=== PATIENT | male | born 1985 | race Caucasian/White ===

== ENCOUNTER 2016-12-04 23:41 | Emergency (ER) | payer OTHER ==
[~2016-12-04] VITALS: Ht 170.2 cm; Wt 88.5 kg
[2016-12-04 23:43] VITALS: Ht 170.2 cm; Wt 88.5 kg
[2016-12-05] MEDS ORDERED: LIDOCAINE 1% (MDV) 20 ML INJ SC ONE (00:30)
[2016-12-05] MEDS ORDERED: CEPH-443 PO (01:12)
[2016-12-05] MEDS ORDERED: DIPHTH/TET/ACEL PERTUSS (ADULT) 0.5 ML VIAL IM* ONE (01:30)
[2016-12-05 02:13] VITALS: BP 133/60; PULSE 89; RESP 20; TEMP 98.3
--- NOTE | 2016-12-05 02:17 | ERD ---
ER Documentation Chief Complaint Date/Time DATE: 12/05/16 TIME: 02:05 Chief Complaint left thumb laceration work related HPI This is a 31-year-old male presenting to the emergency department for left thumb laceration. Patient states he was at work when he cut his thumb using a knife. No numbness or tingling. No loss of sensation. Patient applied direct pressure to injury and bleeding stopped. Tdap status unknown according to patient. ROS All systems reviewed and are negative except as per history of present illness. Medications Home Meds Active Scripts Cephalexin* (Keflex*) 500 Mg Capsule, 500 MG PO QID for 5 Days, CAP Prov:MICHELLE JOSEPH Barbie PACKING AND SHIPPING CLERK 12/05/16 Allergies Allergies: Coded Allergies: No Known Allergy (Unverified , 12/04/16) PMhx/Soc Medical and Surgical Hx: pt denies Medical Hx, pt denies Surgical Hx History of Surgery: No Anesthesia Reaction: No Hx Neurological Disorder: No Hx Respiratory Disorders: No Hx Cardiac Disorders: No Hx Psychiatric Problems: No Hx Miscellaneous Medical Probl: No Hx Alcohol Use: No Hx Substance Use: No Hx Tobacco Use: No Smoking Status: Never smoker Physical Exam Vitals Vital Signs Date Time Temp Pulse Resp B/P Pulse Ox O2 Delivery O2 Flow Rate FiO2 12/04/16 23:43 97.8 88 20 136/89 99 Physical Exam Const: No acute distress, alert Head: Atraumatic Eyes: Normal Conjunctiva ENT: Normal External Ears, Nose and Mouth. Neck: Full range of motion..~ No meningismus. Resp: Clear to auscultation bilaterally Cardio: Regular rate and rhythm, no murmurs Abd: Soft, non tender, non distended. Normal bowel sounds Skin: avulsion to medial aspect of left thumb fingertip with removal of about 1cm of distal left fingernail. no surrounding swelling or erythema. no drainage or warmth. Back: No midline or flank tenderness Ext: No cyanosis, or edema Neur: Awake and alert Psych: Normal Mood and Affect Results 24 hrs Current Medications Medications (Trade) Dose Ordered Sig/Laurie Route PRN Reason Start Time Stop Time Status Last Admin Dose Admin Lidocaine (Xylocaine 1% (Mdv) 20 ml) 20 ml ONCE ONCE SC 12/05/16 00:30 12/05/16 00:31 DC Diphtheria/ Tetanus/Acell Pertussis (Adacel) 0.5 ml ONCE ONCE IM* 12/05/16 01:30 12/05/16 01:31 DC Procedures/MDM MDM: 31-year-old male presents emergency department for laceration that occurred today. Patient was using a knife and had an avulsion type laceration to left thumb. Remains neurovascularly intact. Cannot approximate the skin and no indication for suturing. Patient's bleeding was easily controlled in the department and there is no indication of anemia. No evidence of compartment syndrome, neurologic injury, vascular injury, open joint, tendon laceration, or foreign body. Patient is appropriate for outpatient follow up. 48 hour wound check. Scar minimization instructions given. Patient will be given prescription for Keflex. Return to ED for any high fever, chest pain, difficulty breathing, shortness breath, wheezing, vomiting, diarrhea, abdominal pain or any new or worsening symptoms. Patient verbalizes understanding. All questions answered at discharge. Departure Diagnosis: Primary Impression: Laceration Condition: Stable Patient Instructions: Laceration, Hand Referrals: [facility] YOU HAVE RECEIVED A MEDICAL SCREENING EXAM AND THE RESULTS INDICATE THAT YOU DO NOT HAVE A CONDITION THAT REQUIRES URGENT TREATMENT IN THE EMERGENCY DEPARTMENT. FURTHER EVALUATION AND TREATMENT OF YOUR CONDITION CAN WAIT UNTIL YOU ARE SEEN IN YOUR DOCTORS OFFICE WITHIN THE NEXT 1-2 DAYS. IT IS YOUR RESPONSIBILITY TO MAKE AN APPOINTMENT FOR FOLOW-UP CARE. IF YOU HAVE A PRIMARY DOCTOR --you should call your primary doctor and schedule an appointment IF YOU DO NOT HAVE A PRIMARY DOCTOR YOU CAN CALL OUR PHYSICIAN REFERRAL HOTLINE AT IF YOU CAN NOT AFFORD TO SEE A PHYSICIAN YOU CAN CHOSE FROM THE FOLLOWING [facility] CLINICS [facility] [address] [facility] [address] [facility] [facility] [address] [facility] [address] [facility] [address] [facility]. [facility]. [address] [facility]. [facility] YOU HAVE RECEIVED A MEDICAL SCREENING EXAM AND THE RESULTS INDICATE THAT YOU DO NOT HAVE A CONDITION THAT REQUIRES URGENT TREATMENT IN THE EMERGENCY DEPARTMENT. FURTHER EVALUATION AND TREATMENT OF YOUR CONDITION CAN WAIT UNTIL YOU ARE SEEN IN YOUR DOCTORS OFFICE WITHIN THE NEXT 1-2 DAYS. IT IS YOUR RESPONSIBILITY TO MAKE AN APPOINTMENT FOR FOLOW-UP CARE. IF YOU HAVE A PRIMARY DOCTOR --you should call your primary doctor and schedule and appointment IF YOU DO NOT HAVE A PRIMARY DOCTOR YOU CAN CALL OUR PHYSICIAN REFERRAL HOTLINE AT . IF YOU CAN NOT AFFORD TO SEE A PHYSICIAN YOU CAN CHOSE FROM THE FOLLOWING [facility] INSTITUTIONS: [facility] [address] [place] [address] [facility] [address] [place] [address] [facility] [address] [place] [address] Additional Instructions: Regrese a estas instalaciones dentro de [facility] para un examen de seguimiento.Regrese antes si [place] condicin se empeora. Regresar a ED por fiebre musa, dolor en el pecho, dificultad para respirar, respiracin entrecortada, sibilancias, vmitos, diarrea, dolor abdominal o cualquier sntoma nuevo o que empeora. MICHELLE JOSEPH NP December 05, 2016 02:15
[2016-12-06] MEDS ORDERED: BACI28.34 TOP (11:09)
== END 2016-12-05 02:14 | disposition home or self-care (01) ==
LOC: FTE 23:41
DX: S61.012A Laceration without foreign body of left thumb without damage to nail, initial encounter (principal); W26.0XXA Contact with knife, initial encounter; Y92.9 Unspecified place or not applicable
CPT/HCPCS: 99283

== ENCOUNTER 2016-12-06 10:30 | Emergency (ER) | payer OTHER ==
[~2016-12-06] VITALS: Ht 172.7 cm; Wt 85.0 kg
[~2016-12-06 10:30] MED LIST: CEPH-443 PO
[2016-12-06 10:35] VITALS: Ht 172.7 cm; Wt 85.0 kg
[2016-12-06] MEDS ORDERED: BACI28.34 TOP (11:09)
--- NOTE | 2016-12-06 11:19 | ERD ---
ER Documentation Chief Complaint Date/Time DATE: 12/06/16 TIME: 11:14 Chief Complaint l hand 1st finger wound check " told me to come back for check" HPI This patient is a 31-year-old male presenting to the emergency department for wound recheck of a healing abrasion to the left first finger. Injury occurred approximately 3 days ago and is healing well according to the patient. The patient denies discharge, pain, numbness, fevers, or other symptoms. 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 No other symptoms to report currently. The wound was not sutured 3 days ago because there was no indication to do so. ROS All systems reviewed and are negative except as per history of present illness. Medications Home Meds Active Scripts Bacitracin* (Bacitracin Zinc Oint*) 28.35 Gm Oint, 1 APPLIC TOP BID for 5 Days, #1 TUB APPLI TO Prov:DAVE PA PA-C 12/06/16 Cephalexin* (Keflex*) 500 Mg Capsule, 500 MG PO QID for 5 Days, CAP Prov:MICHELLE JOSEPH NP 12/05/16 Allergies Allergies: Coded Allergies: No Known Allergy (Unverified , 12/04/16) PMhx/Soc History of Surgery: No Anesthesia Reaction: No Hx Neurological Disorder: No Hx Respiratory Disorders: No Hx Cardiac Disorders: No Hx Psychiatric Problems: No Hx Miscellaneous Medical Probl: No Hx Alcohol Use: No Hx Substance Use: No Hx Tobacco Use: No FmHx Noncontributory for chief complaint. Physical Exam Vitals Vital Signs Date Time Temp Pulse Resp B/P Pulse Ox O2 Delivery O2 Flow Rate FiO2 12/06/16 10:35 98.7 67 18 137/64 98 Physical Exam Const: The patient is resting comfortably in no acute distress. Head: Atraumatic Eyes: Normal Conjunctiva ENT: Normal External Ears, Nose and Mouth. Neck: Full range of motion..~ No meningismus. Resp: Clear to auscultation bilaterally Cardio: Regular rate and rhythm, no murmurs Abd: Soft, non tender, non distended. Normal bowel sounds Skin: No petechiae or rashes. There is a well-healing abrasion to the left first finger with no active bleeding currently. There is no significant warmth , erythema, or discharge noted. Back: No midline or flank tenderness Ext: No cyanosis, or edema Neur: Awake and alert Psych: Normal Mood and Affect Procedures/MDM 31-year-old male presents for wound recheck of his left first finger. On physical examination the patient's vitals are within normal limits. Examination of the left upper extremity shows a well-healing abrasion the left first finger. There is no active bleeding or signs of infection. I have low suspicion for cellulitis or other emergent conditions. The patient is stable for discharge home with a prescription for bacitracin. The patient was urged to start taking the Keflex as was prescribed at his last visit. All questions and concerns were addressed. Strict ER return precautions discussed. The patient is to have close follow-up with his primary care physician in the next 1 -2 days. Departure Diagnosis: Primary Impression: Encounter for wound re-check Condition: Fair Patient Instructions: Wound Check, Lac F/U (No Infection) Referrals: [facility] YOU HAVE RECEIVED A MEDICAL SCREENING EXAM AND THE RESULTS INDICATE THAT YOU DO NOT HAVE A CONDITION THAT REQUIRES URGENT TREATMENT IN THE EMERGENCY DEPARTMENT. FURTHER EVALUATION AND TREATMENT OF YOUR CONDITION CAN WAIT UNTIL YOU ARE SEEN IN YOUR DOCTORS OFFICE WITHIN THE NEXT 1-2 DAYS. IT IS YOUR RESPONSIBILITY TO MAKE AN APPOINTMENT FOR FOLOW-UP CARE. IF YOU HAVE A PRIMARY DOCTOR --you should call your primary doctor and schedule an appointment IF YOU DO NOT HAVE A PRIMARY DOCTOR YOU CAN CALL OUR PHYSICIAN REFERRAL HOTLINE AT IF YOU CAN NOT AFFORD TO SEE A PHYSICIAN YOU CAN CHOSE FROM THE FOLLOWING [facility] CLINICS [facility] [address] [facility]. [facility] [address] [facility]. [facility] [address] [facility] [facility] [address] [facility] [address] [facility] [facility]. [address] Additional Instructions: Follow up with your PCP within the next 1-3 days. Return the the emergency department immediately if symptoms worsen or change. If you have any questions regarding medications, ask your pharmacist or us before you leave. If any adverse reactions, occur while taking your medications, discontinue the treatment and return to the emergency department immediately. If any new or worsening symptoms, uncontrolled fevers, or other unexplained symptoms occur, return to the emergency department immediately. Take your medications as directed, and complete the entire course of treatment. DAVE PA PA-C December 06, 2016 11:19
== END 2016-12-06 11:18 | disposition home or self-care (01) ==
LOC: FTE 10:30
DX: Z48.01 Encounter for change or removal of surgical wound dressing (principal)
CPT/HCPCS: 99283